=== PATIENT | male | born 1945 | race Caucasian/White ===

== ENCOUNTER 2016-12-09 13:44 | Emergency (ER) | payer MEDICARE | END 2016-12-09 15:47 | disposition home or self-care (01) | LOC: ER 13:44 | DX: G45.4 Transient global amnesia (principal); Z79.899 Other long term (current) drug therapy; Z79.84 Long term (current) use of oral hypoglycemic drugs; E11.9 Type 2 diabetes mellitus without complications; Z91.040 Latex allergy status | CPT/HCPCS: 36415; 70544; 70551; 80053; 85025; 85610; 85730; 93005 ==